=== PATIENT | female | born 1955 | race Caucasian/White ===

== ENCOUNTER → 2019-10-10 | Emergency (ER) | payer MEDICARE, BC ==
[~2019-10-10] VITALS: Ht 154.9 cm; Wt 73.0 kg
[~2019-10-10] MED LIST: BACL10TA PO; CETI10TA80 PO; CHOL200021 PO; CITA-77 PO; HYDR12.56 PO; LISI-646 PO
[2019-10-10 06:25] VITALS: BP 144/87
== END | disposition left against medical advice (07) ==
LOC: ER 06:14
DX: B02.9 Zoster without complications (principal); Z53.21 Procedure and treatment not carried out due to patient leaving prior to being seen by health care provider